=== PATIENT | male | born 1985 | race American Indian/Alaskan Native ===

== ENCOUNTER 2020-02-17 11:48 | Emergency (ER) | payer MEDICAID, OTHER ==
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
--- NOTE | 2020-02-17 12:22 | CR ---
EXAMINATION: Chest 1V Frontal SEX: Male AGE: 34 years CLINICAL HISTORY: 34-year-old male complaining of chest pain no comparisons immediately available. Interpretation: Negative. Normal cardiac silhouette and pulmonary vascularity (external cafeteria monitor leads). No vascular congestion, cephalization of flow, alveolar edema or dependent pleural effusion. No lung mass, hilar lymphadenopathy or focal lobar pneumonia. No atelectasis/collapse. Param thorax unremarkable. No pneumothorax or pneumomediastinum. Midline tracheal bronchial airway unremarkable. CONCLUSION: No cardiopulmonary abnormality.
[2020-02-17 12:31] LABS: ANION GAP 10.2 mEq/L (7-13); CHLORIDE,CL 101 mmol/L (98-107); SODIUM,NA 136 mmol/L (136-145)
[2020-02-17] MEDS ORDERED: Acetaminophen 325 MG Tab PO ONE (12:34)
== END 2020-02-17 14:06 | disposition home or self-care (01) ==
LOC: DL.ED 11:48
DX: R07.9 Chest pain, unspecified (principal); F15.10 Other stimulant abuse, uncomplicated; Z88.0 Allergy status to penicillin; Z20.828 Contact with and (suspected) exposure to other viral communicable diseases
CPT/HCPCS: 36415; 71045; 80053; 80305; 80307; 81001; 84484; 85025; 87635; 93005; 99285; A9270; 99283; U0002

== ENCOUNTER 2020-02-19 09:08 | Emergency (ER) | payer MEDICAID ==
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
[2020-02-19] MEDS ORDERED: fentaNYL 100 MCG/2 ML SDV IVPUSH ONE (10:20)
[2020-02-19 10:35] LABS: ANION GAP 12.7 mEq/L (7-13); CHLORIDE,CL 101 mmol/L (98-107); SODIUM,NA 136 mmol/L (136-145)
[2020-02-19] MEDS ORDERED: Iopamidol 612 MG/ML 100 ML Bottle IVPUSH ONE (10:41)
[2020-02-19] MEDS ORDERED: Sodium Chloride 0.9% 1,000 ML IV ONE (10:53)
--- NOTE | 2020-02-19 11:51 | CT ---
PROCEDURE INFORMATION: Exam: CT Chest With Contrast Exam date and time: 02/19/2020 11:15 AM Age: 34 years old Clinical indication: Other: Swelling of the chest; Additional info: Swelling in the chest TECHNIQUE: Imaging protocol: Computed tomography of the chest with intravenous contrast. Radiation optimization: All CT scans at this facility use at least one of these dose optimization techniques: automated exposure control; mA and/or kV adjustment per patient size (includes targeted exams where dose is matched to clinical indication); or iterative reconstruction. Contrast material: ISOVUE 300; Contrast volume: 75 ml; Contrast route: INTRAVENOUS (IV); COMPARISON: CR Chest 1V Frontal 02/17/2020 12:06 PM FINDINGS: Lungs: Unremarkable. No consolidation. No masses. Pleural space: No pleural effusion. No pneumothorax. Heart: No cardiomegaly. No pericardial effusion. Mediastinal space: No mediastinal mass. Aorta: No aortic aneurysm. Lymph nodes: No significant adenopathy. Gallbladder and bile ducts: Cholelithiasis, no biliary ductal dilatation. Bones/joints, Soft tissues: Soft tissue edema/inflammation in the upper anterior chest wall centered at the level of the sternomanubrial joint; there is presternal and retrosternal edema/inflammation. No soft tissue fluid collection, no soft tissue air/gas. No bony erosion. IMPRESSION: Findings consistent with septic arthritis at the sternomanubrial joint. Consider follow-up MRI if indicated. THIS REPORT CONTAINS FINDINGS THAT MAY BE CRITICAL TO PATIENT CARE. The findings were verbally communicated via telephone conference with Teresa Kim at 11:48 AM CDT on 02/19/2020. The findings were acknowledged and understood.
[2020-02-19] MEDS ORDERED: HYDROmorphone 1 MG/ML Syringe IVPUSH ONE (13:00)
[2020-02-19] MEDS ORDERED: Ciprofloxacin in D5W 400 MG in Premix Bag 1 BAG IV ONE ×2 (13:05)
== END 2020-02-19 16:05 ==
LOC: DL.ED 09:08
DX: M46.50 Other infective spondylopathies, site unspecified (principal); R07.9 Chest pain, unspecified; Z88.0 Allergy status to penicillin; Z87.891 Personal history of nicotine dependence
CPT/HCPCS: 36415; 71260; 80053; 80305; 80307; 83605; 84484; 85025; 87040; 87077; 87186; 93005; 96361; 96365; 96367; 96375; 99285; J0744; J1170; J3010; J3370; J7030; Q9967; 99284

== ENCOUNTER 2020-07-29 16:12 | Emergency (ER) | payer MEDICAID ==
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
[2020-07-29] MEDS ORDERED: Sodium Chloride 0.9% 1,000 ML IV ONE (16:27)
[2020-07-29] MEDS ORDERED: Ketorolac 30 MG/ML SDV IVPUSH ONE (16:27)
[2020-07-29] MEDS ORDERED: Sodium Chloride 0.9% 10 ML Syringe FLUSH PRN (16:27)
[2020-07-29] MEDS ORDERED: Acetaminophen 325 MG Tab PO ONE (16:28)
[2020-07-29 17:10] LABS: CORONAVIRUS COVID-19 NAA NEGATIVE (NEGATIVE)
[2020-07-29 17:17] LABS: ANION GAP 14.7 mEq/L (7-13); CHLORIDE,CL 98 mmol/L (98-107); SODIUM,NA 132 mmol/L (136-145)
[2020-07-29] MEDS ORDERED: Iopamidol 755 Mg/ML 100 ML Bottle IVPUSH ONE (17:33)
--- NOTE | 2020-07-29 18:23 | CT ---
PROCEDURE INFORMATION: Exam: CT Chest With Contrast; Diagnostic Exam date and time: 07/29/2020 5:41 PM Age: 34 years old Clinical indication: Chest pain; Additional info: Pe study, chest pain, d-dimer >4000 TECHNIQUE: Imaging protocol: Diagnostic computed tomography of the chest with contrast. Radiation optimization: All CT scans at this facility use at least one of these dose optimization techniques: automated exposure control; mA and/or kV adjustment per patient size (includes targeted exams where dose is matched to clinical indication); or iterative reconstruction. Contrast material: [id number]; Contrast volume: 75 ml; Contrast route: INTRAVENOUS (IV); COMPARISON: CT Chest w Cont 02/19/2020 11:15 AM FINDINGS: Lungs: Mild bibasilar atelectasis, left greater than right. Pleural spaces: Unremarkable. No pneumothorax. No pleural effusion. Heart: Unremarkable. No cardiomegaly. No pericardial effusion. Pulmonary arteries: There are no pulmonary emboli. Aorta: There is no aortic dissection or aneurysm. Lymph nodes: Unremarkable. No enlarged lymph nodes. Gallbladder and bile ducts: There are gallstones present. No evidence of cholecystitis demonstrated. Bones/joints: Rib deformities right 4th and 5th ribs consistent with chronic healed fractures. Marked widening of the sternomanubrial joint demonstrating irregular contour and erosive changes associated with marked soft tissue swelling demonstrated flanking the joint space measuring 10.4 x 4.5 x 8.3 cm. Loculated fluid density demonstrated within the mass which is surrounded by inflammatory changes in the adjacent subcutaneous fat. Findings most consistent with a multilocular abscess however the possibility of a neoplasm with without associated infection is not excluded. Shallow dextroscoliosis. Soft tissues: See "Bones/joints" finding. Otherwise unremarkable. IMPRESSION: 1. Large mass flanking the sternomanubrial joint as described above. Differential diagnosis favors a multilocular abscess and septic arthritis, although neoplasm with or without associated infection is not excluded. 2. There is no aortic dissection or aneurysm. 3. There are no pulmonary emboli. 4. There are gallstones present. No evidence of cholecystitis demonstrated.
[2020-07-29] MEDS ORDERED: traMADol 50 MG Tab PO ONE (18:33)
[2020-07-29] MEDS ORDERED: Clindamycin Phosphate 900 MG in Sodium Chloride 0.9% 100 ML IV ONE (18:33)
== END 2020-07-29 19:21 | disposition home or self-care (01) ==
LOC: DL.ED 16:12
DX: L89.311 Pressure ulcer of right buttock, stage 1 (principal); M79.661 Pain in right lower leg; R22.2 Localized swelling, mass and lump, trunk; G89.29 Other chronic pain; F15.10 Other stimulant abuse, uncomplicated; Z87.891 Personal history of nicotine dependence; Z88.0 Allergy status to penicillin; Z20.822 Contact with and (suspected) exposure to COVID-19
CPT/HCPCS: 0240U; 36415; 71260; 80053; 80305; 81001; 83605; 85025; 85379; 86140; 87040; 87077; 87186; 93005; 96365; 96375; 99284; A9270; J1885; J3490; J7030; Q9967; 93010

== ENCOUNTER 2020-09-14 15:45 | Emergency (ER) | payer MEDICAID ==
[2020-09-14 16:43] LABS: CORONAVIRUS COVID-19 NAA NEGATIVE (NEGATIVE)
[2020-09-14 18:13] LABS: ANION GAP 13.1 mEq/L (7-13); CHLORIDE,CL 95 mmol/L (98-107); SODIUM,NA 132 mmol/L (136-145)
--- NOTE | 2020-09-14 18:14 | CR ---
PROCEDURE INFORMATION: Exam: XR Chest Exam date and time: 09/14/2020 5:34 PM Age: 35 years old Clinical indication: Cough; Chest pain; Additional info: Cough, chest pain TECHNIQUE: Imaging protocol: XR of the chest. Views: 2 views. COMPARISON: CT Chest w Cont 07/29/2020 5:41 PM FINDINGS: Lungs: Unremarkable. No consolidation. Pleural spaces: Unremarkable. No pleural effusion. No pneumothorax. Heart/Mediastinum: Unremarkable. No cardiomegaly. Bones/joints: Unremarkable. IMPRESSION: No acute findings.
[2020-09-14] MEDS ORDERED: Ketorolac 30 MG/ML SDV IVPUSH ONE (20:06)
[2020-09-14] MEDS ORDERED: Ketorolac 30 MG/ML SDV IM ONE (20:06)
--- NOTE | 2020-09-14 21:30 | CT ---
PROCEDURE INFORMATION: Exam: CT Pelvis Without Contrast; Skeletal Exam date and time: 09/14/2020 8:14 PM Age: 35 years old Clinical indication: Hip pain; Left hip; Additional info: Groin, left hip pain TECHNIQUE: Imaging protocol: Computed tomography images of the pelvis without contrast. Exam focused on the skeletal structures. Radiation optimization: All CT scans at this facility use at least one of these dose optimization techniques: automated exposure control; mA and/or kV adjustment per patient size (includes targeted exams where dose is matched to clinical indication); or iterative reconstruction. COMPARISON: No relevant prior studies available. FINDINGS: Bones/joints: Joint effusion or hemarthrosis left hip. Comminuted nonacute fracture of the right sacral wing and widening of the right sacroiliac joint measuring 6 mm. Comminuted nonacute fractures of the left pubic ring which do not appear to involve the left hip joint. Nonacute comminuted intertrochanteric left hip fracture. Severe left hip degenerative joint disease. Soft tissues: Soft tissue prominence of left obturator internus muscle, and masslike soft tissue fullness of heterogeneous density along the course of the adductor muscle group with some soft tissue gas. IMPRESSION: 1. Nonacute fractures of right sacral wing, intertrochanteric left hip, and left pubic ring. 2. Soft tissue changes consistent with hematoma. 3. Soft tissue gas about the left hip could be vacuum phenomenon or gas-forming infection. Correlate clinically. 4. Severe left hip degenerative joint disease.
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
[2020-09-14] MEDS ORDERED: Sodium Chloride 0.9% 1,000 ML IV SCH (23:00)
== END 2020-09-14 23:07 ==
LOC: DL.ED 15:45
DX: M25.552 Pain in left hip (principal); S32.9XXG Fracture of unspecified parts of lumbosacral spine and pelvis, subsequent encounter for fracture with delayed healing; F15.10 Other stimulant abuse, uncomplicated; Z20.822 Contact with and (suspected) exposure to COVID-19; Z88.0 Allergy status to penicillin; Z72.0 Tobacco use
CPT/HCPCS: 0240U; 36415; 71046; 72192; 80053; 84484; 85025; 87040; 87077; 87186; 93005; 96365; 96372; 99284; 99285-25; J1885; J3370; J7030; J7050; U0002

== ENCOUNTER 2022-11-04 08:41 | Emergency (ER) | payer OTHER, MEDICAID ==
[2022-11-04 09:24] LABS: BASOPHILS PERCENT AUTO 0.1 % (0.0-1.0); EOSINOPHILS PERCENT AUTO 0.1 % (1.0-3.0); HEMOGLOBIN 12.4 g/dL (14.0-18.0); LYMPHOCYTES PERCENT AUTO 10.8 % (20.5-50.1); MEAN CORPUSCULAR HEMOGLOBIN 28.4 pg (27.0-34.0); MEAN CORPUSCULAR HGB CONC 34.4 g/dL (33.0-35.0); MEAN CORPUSCULAR VOLUME 82.6 fL (80-100); MONOCYTES PERCENT AUTO 11.7 % (2-8); NEUTROPHILS PERCENT AUTO 77.3 % (42.2-75.2); PLATELET COUNT,PLT 155 10^3/uL (150-450); RED BLOOD CELL COUNT 4.36 10^6/uL (4.6-6.2); WHITE BLOOD CELL COUNT,WBC 12.1 10^3/uL (5.0-10.0)
[2022-11-04 09:40] LABS: APPEARANCE,URINE CLEAR (CLEAR); BILIRUBIN,URINE SMALL (NEGATIVE); COLOR,URINE YELLOW (YELLOW); GLUCOSE,URINE NEGATIVE (NEGATIVE); KETONES,URINE 15 (NEGATIVE); LEUKOCYTE ESTERASE,URINE NEGATIVE (NEGATIVE); NITRITE,URINE NEGATIVE (NEGATIVE); OCCULT BLOOD,URINE LARGE (NEGATIVE); PH,URINE 5.5 (5.0-9.0); PROTEIN,URINE 100 (NEGATIVE)
[2022-11-04 09:41] LABS: AMPHETAMINES,URINE NEGATIVE (NEGATIVE); BARBITURATES,URINE NEGATIVE (NEGATIVE); BENZODIAZEPINE,URINE NEGATIVE (NEGATIVE); MDMA (ECSTASY), URINE NEGATIVE (NEGATIVE); METHADONE,URINE NEGATIVE (NEGATIVE); METHAMPHETAMINES,URINE NEGATIVE (NEGATIVE); OPIATES,URINE NEGATIVE (NEGATIVE); OXYCODONE,URINE NEGATIVE (NEGATIVE); PHENCYCLIDINE,URINE NEGATIVE (NEGATIVE); TCA,URINE NEGATIVE (NEGATIVE)
[2022-11-04 09:44] LABS: A/G RATIO 0.9; ALANINE AMINOTRANSFERASE,ALT 56 U/L (16-63); ALKALINE PHOSPHATASE 118 U/L (46-116); ANION GAP 19.8 mEq/L (7-13); ASPARTATE AMNIOTRANSFERASE,AST 241 U/L (15-37); BILIRUBIN TOTAL 1.2 mg/dL (0.2-1.0); BLOOD UREA NITROGEN,BUN 65 mg/dL (7-18); BUN/CREATININE RATIO 22.9 (No establ ref range); CALCIUM 9.1 mg/dL (8.5-10.1); CARBON DIOXIDE,CO2 22 mmol/L (21-32); CHLORIDE,CL 97 mmol/L (98-107); CREATININE 2.84 mg/dL (0.70-1.30); EST CRCL DRUG DOSING (CG) 40.25 mL/min; GLUCOSE RANDOM 100 mg/dL (70-99); POTASSIUM,K 3.8 mmol/L (3.5-5.1); PROTEIN TOTAL,TP 8.4 g/dL (6.4-8.2); SODIUM,NA 135 mmol/L (136-145)
[2022-11-04 09:47] LABS: ESTIMATED GFR 28 mL/min (>=60)
[2022-11-04 09:50] LABS: PROTHROMBIN TIME 9.8 SEC (9.0-12.0)
[2022-11-04 09:51] LABS: BACTERIA,URINE FEW /HPF (0-FEW/HPF); EPITHELIAL CELLS,URINE OCCASIONAL /HPF (NOT SEEN); HYALINE CASTS,URINE RARE; MUCUS,URINE OCCASIONAL /LPF (NOT SEEN); RBC,URINE 40-50 /HPF (0-5); WBC,URINE 0-5 /HPF (0-5/HPF)
[2022-11-04] MEDS ORDERED: Sodium Chloride 0.9% 1,000 ML IV ONE ×2 (09:51)
[2022-11-04] MEDS ORDERED: Sodium Chloride 0.9% 10 ML Syringe FLUSH PRN (09:51)
[2022-11-04] MEDS ORDERED: Promethazine 25 MG/ML SDV IM ONE (10:03)
[2022-11-04 11:01] LABS: CREATINE KINASE,CK > 7000 U/L (39-308)
== END 2022-11-04 10:58 ==
LOC: DL.ED 08:41
DX: E86.0 Dehydration (principal); N17.9 Acute kidney failure, unspecified; Z88.0 Allergy status to penicillin; Z88.8 Allergy status to other drugs, medicaments and biological substances
CPT/HCPCS: 36415; 80053; 80305-QW; 81001; 82550; 85025; 85610; 85730; 96372; 99285; J2550; J3490; J7030